=== PATIENT | female | born 1990 | race Caucasian/White ===

== ENCOUNTER 2017-11-22 05:23 | Emergency (ER) | payer OTHER ==
--- NOTE | 2017-11-22 05:31 | EDPHY ---
H & P Stated Complaint: pos preg test and cramping Time Seen by Provider: 11/22/17 05:29 HPI/ROS: HPI The patient presents with abdominal cramping which is in her lower abdomen which began several hours ago and awoke her from sleep. It is moderate in severity. Her last menstrual period was October 11. She is currently off of her control pills because of dysmenorrhea. As she is not having any vaginal bleeding.. REVIEW OF SYSTEMS Constitutional: No fever, no chills. Eyes: No discharge. ENT: No sore throat. Cardiovascular: No chest pain, no palpitations. Respiratory: No cough, no shortness of breath. Gastrointestinal: Positive for abdominal pain, no vomiting. Genitourinary: No hematuria. Musculoskeletal: No back pain. Skin: No rashes. Neurological: No headache. PMHx: Dysmenorrhea Soc Hx: Housed PHYSICAL General Appearance: Alert, no distress Eyes: Pupils equal and round no pallor or injection ENT, Mouth: Mucous membranes moist Respiratory: There are no retractions, lungs are clear to auscultation Cardiovascular: Regular rate and rhythm Gastrointestinal: Abdomen is soft and non-tender, no masses, bowel sounds normal Neurological: A&O, moves all extremities Skin: Warm and dry, no rashes Musculoskeletal: Neck is supple non tender Extremities: symmetrical, full range of motion Psychiatric: Patient is oriented X 3, there is no agitation Source: Patient Exam Limitations: No limitations - Personal History LMP (Females 10-55): Current Tetanus/Diphtheria Vaccine: Yes Current Tetanus Diphtheria and Acellular Pertussis (TDAP): Yes - Medical/Surgical History Hx Asthma: No Hx Chronic Respiratory Disease: No Hx Diabetes: No Hx Cardiac Disease: No Hx Renal Disease: No Hx Cirrhosis: No Hx Alcoholism: No Hx HIV/AIDS: No Hx Splenectomy or Spleen Trauma: No Other PMH: kidney stones - Social History Smoking Status: Never smoked Constitutional: Initial Vital Signs Temperature (C) 36.6 C 11/22/17 05:24 Heart Rate 86 11/22/17 05:24 Respiratory Rate 16 11/22/17 05:24 Blood Pressure 118/86 H 11/22/17 05:24 O2 Sat (%) 99 11/22/17 05:24 O2 Delivery Mode Room Air Allergies/Adverse Reactions: No Known Allergies Allergy (Unverified 11/22/17 05:28) Home Medications: Medication Instructions Recorded NK [No Known Home Meds] 11/22/17 Medical Decision Making - Diagnostics Imaging Results: Pelvic ultrasound demonstrates thickened endometrium stripe with likely corpus luteum cyst, discussed with Dr. French of Radiology. Differential Diagnosis: 27-year-old female with LMP P of October 11 presents with abdominal cramping with positive test at home. Here, she has mild abdominal tenderness in her lower quadrants. Differential diagnosis includes ectopic , spontaneous , early was cramping. In the emergency department, CBC was normal, hCG was 25. Ultrasound was performed and did demonstrate a thickened endometrial stripe with a possible corpus luteum cyst. Differential given this information includes early IUP versus spontaneous . I have explained this to the patient. I have instructed her that she can take Tylenol as needed for her pain. I have given her follow-up information for the OBGYN retail sales vitamin consultant, patient cannot recall the name of her primary OBGYN. She should follow up within the next several days if she is having ongoing symptoms as early spontaneous is a consideration. Otherwise she will need to arrange for routine care. She is in agreement with this plan. - Data Points Laboratory Results: Laboratory Results 11/22/17 05:37 11/22/17 11/22/17 05:37 05:37 WBC 7.54 10^3/uL 10^3/uL (3.80-9.50) RBC 4.68 10^6/uL 10^6/uL (4.18-5.33) Hgb 13.8 g/dL g/dL (12.6-16.3) Hct 41.6 % % (38.0-47.0) MCV 88.9 fL fL (81.5-99.8) MCH 29.5 pg pg (27.9-34.1) MCHC 33.2 g/dL g/dL (32.4-36.7) RDW 12.7 % % (11.5-15.2) Plt Count 265 10^3/uL 10^3/uL (150-400) MPV 9.2 fL fL (8.7-11.7) Neut % (Auto) 53.9 % % (39.3-74.2) Lymph % (Auto) 34.1 % % (15.0-45.0) [place] % (Auto) 9.3 % % (4.5-13.0) Eos % (Auto) 1.9 % % (0.6-7.6) Baso % (Auto) 0.5 % % (0.3-1.7) Nucleat RBC Rel Count 0.0 % % (0.0-0.2) Absolute Neuts (auto) 4.07 10^3/uL 10^3/uL (1.70-6.50) Absolute Lymphs (auto) 2.57 10^3/uL 10^3/uL (1.00-3.00) Absolute Monos (auto) 0.70 10^3/uL 10^3/uL (0.30-0.80) Absolute Eos (auto) 0.14 10^3/uL 10^3/uL (0.03-0.40) Absolute Basos (auto) 0.04 10^3/uL 10^3/uL (0.02-0.10) Absolute Nucleated RBC 0.00 10^3/uL 10^3/uL (0-0.01) Immature Gran % 0.3 % % (0.0-1.1) Immature Gran # 0.02 10^3/uL 10^3/uL (0.00-0.10) Beta HCG, Quant 23.17 mIU/mL H mIU/mL (0.00-4.83) Medications Given: Discontinued Medications Acetaminophen (Tylenol) 650 mg PO EDNOW ONE Stop: 11/22/17 06:26 Last Admin: 11/22/17 06:30 Dose: 650 mg Departure - Departure Disposition: Home, Routine, Self-Care Clinical Impression: Abdominal cramping, Early stage of Condition: Good Instructions: (ED) Additional Instructions: Your blood work today showed that your with a test of about 25 (HCG). Your ultrasound showed an early , however we cannot rule out a miscarriage at this point. Because of this, you should follow up with the OBGYN listed below. You should return to the emergency department if your worse in any way. Referrals: Sarah Fernandez MD [Medical Doctor] - As per Instructions
[2017-11-22 05:55] LABS: PLATELET COUNT 265 10^3/uL (150-400)
[2017-11-22] MEDS ORDERED: ACETAMINOPHEN 325 MG TAB PO ONE (06:25)
[2017-11-22 07:04] VITALS: BP 103/71
== END 2017-11-22 07:02 | disposition home or self-care (01) ==
DX: O26.899 Other specified pregnancy related conditions, unspecified trimester (principal); R10.9 Unspecified abdominal pain; Z3A.00 Weeks of gestation of pregnancy not specified

== ENCOUNTER 2017-11-22 12:50 | Emergency (ER) | payer OTHER ==
--- NOTE | 2017-11-22 13:38 | EDPHY ---
H & P Stated Complaint: Vaginal bleeding, painful cramps in the last 30 minutes. Time Seen by Provider: 11/22/17 13:22 HPI/ROS: CHIEF COMPLAINT: Vaginal bleeding, HISTORY OF PRESENT ILLNESS: 27-year-old female seen in the emergency department earlier today/last evening for complaints of of abdominal pain, was found to be , had subsequent evaluation including pelvic ultrasound showing a thickened endometrial stripe with likely corpus luteum cyst discharged home. No complaints of vaginal bleeding or spotting at that time. Patient presents to the ER this afternoon stating that a few hours after leaving the ER she developed increased abdominal cramping and vaginal bleeding as well as passage of a large clot. She is currently complaining of left lower quadrant pain which feels different than it this morning. No nausea or vomiting. No fever no chills. REVIEW OF SYSTEMS: A ten point review of systems was performed and is negative with the exception of the items mentioned in the HPI PAST MEDICAL & SURGICAL HISTORY: last menstrual period 10/11/2017 SOCIAL HISTORY: Nonsmoker PHYSICAL EXAM (Prior to examination, patient consented to physical exam, hands were washed and my usual and customary physical exam procedures followed) 1) GENERAL: Well-developed, well-nourished, alert and oriented. Appears uncomfortable 2) HEAD: Normocephalic, atraumatic 3) HEENT: Pupils equal, round, reactive to light bilaterally. Sclera anicteric. Nasopharynx, oropharynx, clear, no lesions. Moist mucous membrane 4) NECK: Full range of motion, no meningeal signs. 5) LUNGS: Clear auscultation bilaterally, no wheezes, no rhonchi, no retractions. 6) HEART: Regular rate and rhythm, no murmur, no heave, no gallop. 7) ABDOMEN: No guarding, tender to palpation left lower quadrant negative McBurney's, negative Alexander's,, negative peritoneal sign, 8) MUSCULOSKELETAL: Moving all extremities, no focal areas of tenderness, no obvious trauma. No peripheral edema or discoloration. 9) BACK: No CVA tenderness, no midline vertebral tenderness, no fluctuance, no step-off, no obvious trauma, no visual or palpable abnormality. 10) SKIN: No rash, no petechiae. 11) Psychiatric: Patient is oriented X 3, there is no agitation. DIFFERENTIAL DIAGNOSIS: In no particular order including but not limited to ectopic , spontaneous , threatened - Personal History LMP (Females 10-55): Current Tetanus Diphtheria and Acellular Pertussis (TDAP): Yes - Medical/Surgical History Hx Asthma: No Hx Chronic Respiratory Disease: No Hx Diabetes: No Hx Cardiac Disease: No Hx Renal Disease: No Hx Cirrhosis: No Hx Alcoholism: No Hx HIV/AIDS: No Hx Splenectomy or Spleen Trauma: No Other PMH: kidney stones - Social History Smoking Status: Never smoked Constitutional: Initial Vital Signs Temperature (C) 36.6 C 11/22/17 12:57 Heart Rate 101 H 11/22/17 12:57 Respiratory Rate 16 11/22/17 12:57 Blood Pressure 106/73 11/22/17 12:57 O2 Sat (%) 98 11/22/17 12:57 O2 Delivery Mode Room Air Allergies/Adverse Reactions: No Known Allergies Allergy (Unverified 11/22/17 05:28) Medical Decision Making - Diagnostics Imaging Results: Imaging Impressions Pelvic/Renal Ultrasound 11/22/17 13:39 Impression: Normal ultrasound pelvis. No IUP identified although the beta hCG is relatively low. Continued follow-up suggested. Ectopic cannot be excluded at this point. Findings discussed with Benja HEATON at 15:09 hour, 11/22/2017. ED Course/Re-evaluation: 1:38 p.m.: Patient is now complaining of vaginal bleeding. Will obtain laboratory studies including quantitative HCG, Rh and will plan on repeating pelvic ultrasound as she notes an increase in left lower quadrant pain to evaluate for possible ovarian torsion. I saw this patient independently based on established practice protocols. Care of patient under supervision of secondary supervising physician Dr Harris with whom I discussed case. 3:00 p.m.: Positive Rh status 3:11 p.m.: Patient has unchanged ultrasound compared to this morning interpreted by staff radiologist at this time, no evidence of ovarian torsion. 3:14 p.m.: Patient re-evaluated with serial examinations. Her pain is controlled. We discussed her down-trending HCG. We discussed her laboratory results. We discussed more than likely spontaneous versus threatened . Recommended pelvic rest, recommend follow-up with OBGYN on Saturday as today is Saturday. Urinalysis shows no pyuria or bacteriuria. She feels comfortable being discharged. All questions and concerns addressed by myself. Usual and customary obstetrical precautions instructions provided. - Data Points Laboratory Results: Laboratory Results 11/22/17 13:35 11/22/17 13:35 11/22/17 11/22/17 11/22/17 14:12 13:35 13:35 WBC RBC Hgb Hct MCV MCH MCHC RDW Plt Count MPV Neut % (Auto) Lymph % (Auto) [place] % (Auto) Eos % (Auto) Baso % (Auto) Nucleat RBC Rel Count Absolute Neuts (auto) Absolute Lymphs (auto) Absolute Monos (auto) Absolute Eos (auto) Absolute Basos (auto) Absolute Nucleated RBC Immature Gran % Immature Gran # Sodium 138 mEq/L mEq/L (135-145) Potassium 4.3 mEq/L mEq/L (3.3-5.0) Chloride 108 mEq/L mEq/L (97-110) Carbon Dioxide 23 mEq/l mEq/l (22-31) Anion Gap 7 mEq/L L mEq/L (8-16) BUN 9 mg/dL mg/dL (7-23) Creatinine 0.6 mg/dL mg/dL (0.6-1.0) Estimated GFR > 60 Glucose 72 mg/dL mg/dL (70-100) Calcium 9.4 mg/dL mg/dL (8.5-10.4) Beta HCG, Quant 19.25 mIU/mL H mIU/mL (0.00-4.83) Urine Color PALE YELLOW Urine Appearance CLEAR Urine pH 8.0 H (5.0-7.5) Ur Specific [place] 1.002 (1.002-1.030) Urine Protein NEGATIVE (NEGATIVE) Urine Ketones NEGATIVE (NEGATIVE) Urine Blood 2+ H (NEGATIVE) Urine Nitrate NEGATIVE (NEGATIVE) Urine Bilirubin NEGATIVE (NEGATIVE) Urine Urobilinogen NEGATIVE EU EU (0.2-1.0) Ur Leukocyte Esterase NEGATIVE (NEGATIVE) Urine RBC 3-5 /hpf H /hpf (0-3) Urine WBC 0-1 /hpf /hpf (0-3) Ur Epithelial Cells TRACE /lpf /lpf (NONE-1+) Urine Mucus TRACE /lpf /lpf (NONE-1+) Urine Glucose NEGATIVE (NEGATIVE) Patient ABO/Rh O POSITIVE 11/22/17 13:35 WBC 9.55 10^3/uL H 10^3/uL (3.80-9.50) RBC 4.86 10^6/uL 10^6/uL (4.18-5.33) Hgb 14.4 g/dL g/dL (12.6-16.3) Hct 43.0 % % (38.0-47.0) MCV 88.5 fL fL (81.5-99.8) MCH 29.6 pg pg (27.9-34.1) MCHC 33.5 g/dL g/dL (32.4-36.7) RDW 12.8 % % (11.5-15.2) Plt Count 281 10^3/uL 10^3/uL (150-400) MPV 9.4 fL fL (8.7-11.7) Neut % (Auto) 70.1 % % (39.3-74.2) Lymph % (Auto) 19.7 % % (15.0-45.0) [place] % (Auto) 8.4 % % (4.5-13.0) Eos % (Auto) 1.2 % % (0.6-7.6) Baso % (Auto) 0.4 % % (0.3-1.7) Nucleat RBC Rel Count 0.0 % % (0.0-0.2) Absolute Neuts (auto) 6.70 10^3/uL H 10^3/uL (1.70-6.50) Absolute Lymphs (auto) 1.88 10^3/uL 10^3/uL (1.00-3.00) Absolute Monos (auto) 0.80 10^3/uL 10^3/uL (0.30-0.80) Absolute Eos (auto) 0.11 10^3/uL 10^3/uL (0.03-0.40) Absolute Basos (auto) 0.04 10^3/uL 10^3/uL (0.02-0.10) Absolute Nucleated RBC 0.00 10^3/uL 10^3/uL (0-0.01) Immature Gran % 0.2 % % (0.0-1.1) Immature Gran # 0.02 10^3/uL 10^3/uL (0.00-0.10) Sodium Potassium Chloride Carbon Dioxide Anion Gap BUN Creatinine Estimated GFR Glucose Calcium Beta HCG, Quant Urine Color Urine Appearance Urine pH Ur Specific [place] Urine Protein Urine Ketones Urine Blood Urine Nitrate Urine Bilirubin Urine Urobilinogen Ur Leukocyte Esterase Urine RBC Urine WBC Ur Epithelial Cells Urine Mucus Urine Glucose Patient ABO/Rh Departure - Departure Disposition: Home, Routine, Self-Care Clinical Impression: Threatened Condition: Good Instructions: Threatened Miscarriage (ED) Additional Instructions: Return to the ER if you develop increasing vaginal bleeding, worsening pain, or any other symptoms that concern you. Referrals: Guerrero Chavira MD [Medical Doctor] - 11/25/17
[2017-11-22 13:55] LABS: PLATELET COUNT 281 10^3/uL (150-400)
[2017-11-22 15:27] VITALS: BP 110/60
== END 2017-11-22 15:25 | disposition home or self-care (01) ==
DX: O20.0 Threatened abortion (principal); Z3A.00 Weeks of gestation of pregnancy not specified